=== PATIENT | female | born 2005 | race Caucasian/White ===

== ENCOUNTER 2023-08-03 11:23 | Emergency (ER) | payer OTHER, SELFPAY ==
--- NOTE | ~2023-08-03 | XR_ITS ---
XR shoulder RT min 2V DATE: 08/03/2023 12:43 INDICATION: Fell down stairs. Unable to move right arm. TECHNIQUE: 3 views of right shoulder COMPARISON: None FINDINGS: There is a transverse minimally displaced surgical neck fracture of the right humerus. No s ignificant angulation. Normal alignment at the, clavicular and glenohumeral joints. Prominent soft tissue swelling of the pr oximal right arm. IMPRESSION: Minimally displaced transverse surgical neck fracture right humerus Prominent soft tissue swelling of the proximal right upper extremity suggesting prominent hematoma. Reviewed, dictated and finalized at location L. ECTOR FIREARMS
--- NOTE | ~2023-08-03 | CT_ITS ---
EXAMINATION: CT cervical spine wo con DATE: 08/03/2023 12:35 INDICATION: Head injury. TECHNIQUE: Computed tomography (CT) of the cervical spine was performed without intravenous contrast. Automated exposure control and iterative reconstruction technique were employed. The dose-length pro duct was 425.50 mGy-cm. 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 Vertebral body heights and intervertebral disc hei ghts are normal. At C7-T1, there is moderate bilateral facet joint osteoarthritis. No neural foramina l stenosis. There is mild central canal stenosis at C4-C5, C5-C6, and C6-C7. IMPRESSION: 1. No fracture. Reviewed, dictated and finalized at location A. AND BEVERAGE DIRECTOR IMPRESSION: 1. No fracture.
--- NOTE | ~2023-08-03 | CT_ITS ---
EXAMINATION: CT brain wo con DATE: 08/03/2023 12:33 INDICATION: Head injury. TECHNIQUE: Computed tomography (CT) of the head was performed without intravenous contrast. The mA wa s adjusted according to patient size. Iterative reconstruction technique was employed. The dose-lengt h product was 605.33 mGy-cm. COMPARISON: None FINDINGS: There is no intracranial hemorrhage, acute infarction, or abnormal intracranial mass lesion . The ventricles are normal in size. The orbits are normal. There is mild mucosal thickening in the e thmoid sinuses. The mastoid air cells are normal. IMPRESSION: 1. Normal brain. Reviewed, dictated and finalized at location A. FORCE MANAGEMENT ANALYST IMPRESSION: 1. Normal brain.
[2023-08-03 11:29] VITALS: BP 144/88; PULSE 84; RESP 16; TEMP 36.4; O2SAT 100
[2023-08-03 11:37] VITALS: BP 134/97; PULSE 69; PULSE 90; RESP 16; O2SAT 100
[2023-08-03 11:46] VITALS: BP 135/92; PULSE 88; RESP 16; O2SAT 100
--- NOTE | 2023-08-03 11:47 | PC.NURSE ---
c-collar applied when pt brought to room 22 after cutting her sweatshirt off per her request
--- NOTE | 2023-08-03 12:18 | ED.GENADULT ---
HPI - General Adult General Chief complaint: Extremity Injury, Upper <RADHA Porras Last Filed: 08/03/23 18:46> Stated complaint: right shoulder <RADHA Porras Last Filed: 08/03/23 18:46> Time Seen by Provider: 08/03/23 11:32 <RADHA Porras Last Filed: 08/03/23 18:46> Source: patient <RADHA Porras Last Filed: 08/03/23 18:46> Mode of arrival: ambulatory <RADHA Porras Last Filed: 08/03/23 18:46> Limitations: no limitations <RADHA Porras Last Filed: 08/03/23 18:46> History of Present Illness HPI narrative: This is a 18-year-old female who presents to the ED with chief complaint of a right shoulder injury after falling downstairs today. reports she was at the top of 14 stairs when she stumbled CN 2. She states she fell down all of the stairs and now has R shoulder and neck pain. Denies syncope. denies numbness or weakness. States she is guarding her right shoulder movement due to pain. Denies any persistent pain or injury. <Aj Powell PA-C - Last Filed: 08/03/23 18:46> Related Data Allergies/adverse reactions: Allergies Allergy/AdvReac Type Severity Reaction Status Date / Time No Known Allergies Allergy Verified 08/03/23 11:24 <RADHA Porras Last Filed: 08/03/23 18:46> Review of Systems Review of Systems: All systems as dictated in HPI <Aj Powell PA-C - Last Filed: 08/03/23 18:46> Exam Narrative: GENERAL: Well-appearing, well-nourished, and in no acute distress. HEAD: Normocephalic, atraumatic. EYES: PERRLA and EOMI. ENT: Nares clear, no rhinorrhea or epistaxis. Mucous membranes moist. Oropharynx without tonsillar hypertrophy exudate or other lesions. NECK: Supple. No adenopathy or masses. CHEST: No respiratory distress. Clear to auscultation. No wheezes rales or rhonchi . No chest wall tenderness. HEART: Regular rate and rhythm. No murmur heard. Normal peripheral pulses. ABDOMEN: Soft, nontender, nondistended, normal active bowel sounds. MSK: guarding the right shoulder. tenderness throughout the right shoulder. Limited range of motion passively due to pain. no crepitus or bruising. Left upper extremity fully intact. Mild midline cervical spine tenderness with no step-off or deformity. no thoracic lumbosacral spine tenderness. MSK exam is otherwise intact. SKIN: Warm, dry, no rash. NEURO: Alert and oriented x3. No focal deficits. PSYCH: Normal mood and affect. <Aj Powell PA-C - Last Filed: 08/03/23 18:46> Course Course Emergency Course: consult Dr. collier (ortho): recommends sling only and follow up in clinic. <Aj Powell PA-C - Last Filed: 08/03/23 18:46> BOTTOM FILLER/PA Physician Supervision This visit was performed by both a physician and an APC. I performed all aspects of the MDM as documented. <Diamond Smith MD - Last Filed: 08/03/23 19:09> Vital Signs Vital signs: Vital Signs Temperature 97.6 F 08/03/23 11:29 Pulse Rate 84 08/03/23 11:29 Respiratory Rate 16 08/03/23 11:29 Blood Pressure 144/88 H 08/03/23 11:29 Pulse Oximetry 100 08/03/23 11:29 Oxygen Delivery Room Air 08/03/23 11:29 Temperature 98.0 F 08/03/23 13:31 Pulse Rate 99 08/03/23 13:31 Respiratory Rate 16 08/03/23 13:31 Blood Pressure 125/90 08/03/23 13:31 Pulse Oximetry 100 08/03/23 13:31 Oxygen Delivery Room Air 08/03/23 11:37 <Aj Powell PA-C - Last Filed: 08/03/23 18:46> Vital Signs Temperature 97.6 F 08/03/23 11:29 Pulse Rate 84 08/03/23 11:29 Respiratory Rate 16 08/03/23 11:29 Blood Pressure 144/88 H 08/03/23 11:29 Pulse Oximetry 100 08/03/23 11:29 Oxygen Delivery Room Air 08/03/23 11:29 Temperature 98.0 F 08/03/23 13:31 Pulse Rate 99 08/03/23 13:31 Respiratory Rate 16 08/03/23 13:31 Blood Pressure 125/90 08/03/23 13:31 Pulse Oximetry 100 08/03/23 13:31 Oxygen Delivery R
[2023-08-03] MEDS: KETOROLAC 30 MG/ML VIAL (*BKC) IM (13:10)
[2023-08-03 13:17] VITALS: BP 115/86; PULSE 88; RESP 16; O2SAT 100
[2023-08-03 13:31] VITALS: BP 125/90; PULSE 99; RESP 16; TEMP 36.7; O2SAT 100
== END 2023-08-03 14:01 | disposition home or self-care (01) ==
PROVIDERS: Emergency Provider Physician Assistant; PCP Nurse Practitioner Family
DX: S42.211A Unspecified displaced fracture of surgical neck of right humerus, initial encounter for closed fracture (principal); W10.9XXA Fall (on) (from) unspecified stairs and steps, initial encounter
CPT/HCPCS: 70450; 72125; 73030; 96372; 99284; A4565; J1885